=== PATIENT | female | born 1975 | race African-American/Black ===

== ENCOUNTER 2018-08-16 18:11 | Emergency (ER) | payer OTHER, BC ==
[2018-08-16] MEDS ORDERED: ACETAMINOPHEN 325 MG TABLET PO ONE (20:20)
[2018-08-16] MEDS ORDERED: METHOCARBAMOL 500 MG TABLET PO ONE (20:20)
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
--- NOTE | 2018-08-16 21:21 | RADIOLOGY REPORT (SQ) ---
5 VIEWS OF LUMBAR SPINE EXAM DATE: 08/16/2018 8:19 PM CDT HISTORY: Lower back pain. COMPARISON: None. FINDINGS: No acute compression fracture is seen. There is normal alignment without subluxation. The disc spaces are preserved. No evidence of spondylolysis on the oblique views. The sacroiliac joints are intact. IMPRESSION: No acute compression fracture of the lumbar spine is seen. However, please note that if there is point tenderness or high clinical concern, a CT scan is recommended.
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
--- NOTE | 2018-08-16 21:22 | RADIOLOGY REPORT (SQ) ---
2 VIEWS OF THORACIC SPINE EXAM DATE: 08/16/2018 8:19 PM CDT HISTORY: Lower back pain. COMPARISON: None. FINDINGS: No acute compression fracture is seen. There is normal alignment without subluxation. The disc spaces are preserved. IMPRESSION: No acute compression fracture of the thoracic spine is seen. However, please note that if there is point tenderness or high clinical concern, a CT scan is recommended.
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
[2018-08-16 23:18] VITALS: BP 99/66
== END 2018-08-16 23:30 | disposition home or self-care (01) ==
LOC: ER 18:11
DX: R51 Headache (principal); M54.2 Cervicalgia; H53.149 Visual discomfort, unspecified; H53.8 Other visual disturbances; R20.0 Anesthesia of skin; R53.1 Weakness
CPT/HCPCS: 70450; 72070; 72110; 72125; 72131; 72170; 99284

== ENCOUNTER → 2019-01-18 | Day surgery (SDC) | payer BC ==
--- NOTE | 2019-01-18 16:16 | RADIOLOGY REPORT (SQ) ---
EXAM DESCRIPTION: ARTHRO HIP; FLUORO/NEEDLE PLACEMENT COMPLETED DATE/TIME: 01/18/2019 3:46 pm REASON FOR STUDY: M25.551 PAIN IN RIGHT HIP M25.551 PAIN IN RIGHT HIP COMPARISON: CT lumbar spine 08/16/2018 AP pelvis 08/16/2018 FLUOROSCOPY TIME: 20 seconds 1 digital fluoroscopic images saved to PACS. LIMITATIONS: None. PROCEDURE: Procedure, risks, benefits and alternatives explained to patient who then gave written c onsent. The left hip was marked and a time-out was called for correct marking verification. Entry s ite marked using fluoroscopic guidance. Hip prepped and draped using sterile technique. Local anes thesia achieved using 6 mL of 1% lidocaine injection. 22 gauge spinal needle introduced into the margie nt space under direct fluoroscopic visualization. Non-ionic contrast instilled to confirm intra-anand cular position. Dilute gadolinium solution then injected. Needle removed and entry site covered wi th sterile bandage. No immediate complications noted. TECHNIQUE: Digital images acquired during fluoroscopy and stored on PACS. Patient immediately take n to the MR suite for additional imaging. INJECTION LOCATION: Left hip joint space CONTRAST TYPE AND AMOUNT: 1 mL of Omnipaque 300 was injected to confirm intra-articular needle placem ent followed by 10 mL of dilute Dotarem/Saline mixture. IMPRESSION: SUCCESSFUL NEEDLE PLACEMENT AND INJECTION FOR LEFT HIP MR ARTHROGRAM. COMMENT: Quality ID [id number]: Final reports for procedures using fluoroscopy that document radiation exp osure indices, or exposure time and number of fluorographic images (if radiation exposure indices are not available) TECHNICAL DOCUMENTATION: JOB ID: [id number] [employer]- All Rights Reserved Reading location - IP/workstation name: [email or web address]
--- NOTE | 2019-01-19 13:39 | RADIOLOGY REPORT (SQ) ---
EXAM DESCRIPTION: MRI LT LOWER JOINT WITH COMPLETED DATE/TIME: 01/18/2019 4:27 pm REASON FOR STUDY: M25.551 PAIN IN RIGHT HIP M25.551 PAIN IN RIGHT HIP COMPARISON: None. TECHNIQUE: Post arthrogram imaging is performed using T1 and T1 and T2 fat saturated sequences of th e pelvis and specific hip of interest. LIMITATIONS: None. FINDINGS: JOINT DISTENSION: Adequate. No loose body. BONE MARROW: No edema. No marrow replacement. FEMORAL HEAD, NECK, AND ACETABULUM: No occult fracture. No osteophytes or subchondral cysts. Normal s phericity of femoral head/neck junction. No acetabular dysplasia. No evidence of femoroacetabular imp ingement. PUBIC RAMI AND ISCHIUM: No occult fracture. SACRUM AND MARIANO: SI joints normal in signal. No occult fracture. EFFUSIONS: None. LABRUM AND CARTILAGE: No labral tear. Cartilage of normal thickness without delamination. MUSCLES AND SOFT TISSUES: Adductors and piriformis normal. Abductors and greater trochanteric bursa n ormal without edema or fluid. Iliopsoas bursa without fluid. Hamstring attachments without edema or t ear. PELVIC SOFT TISSUES: No masses or adenopathy. SCIATIC NERVE: Identified without masses. OTHER: No other significant finding. IMPRESSION: NORMAL MRI ARTHROGRAM OF THE HIP. TECHNICAL DOCUMENTATION: JOB ID: [id number] [employer]- All Rights Reserved Reading location - IP/workstation name: [email or web address]
== END ==
LOC: RAD 14:48
PROVIDERS: ATTEND Orthopaedic Surgery
DX: M25.551 Pain in right hip (principal)
CPT/HCPCS: 73722; 73525; 77002; A9576